=== PATIENT | female | born 1945 | race Caucasian/White ===

== ENCOUNTER → 2018-01-31 07:02 | Day surgery (SDC) | payer MEDICARE, BC ==
--- NOTE | 2018-01-17 10:19 | HP ---
HISTORY AND PHYSICAL: DATE OF SURGERY: 01/31/18 DATE OF HISTORY AND PHYSICAL: 01/14/18 SURGEON: Dr. Salmon.* (DICTATED BY JOE BENSON) PROCEDURE: Right foot excision of ganglion cyst. CHIEF COMPLAINT: Right foot pain. HISTORY OF PRESENT ILLNESS: Efren is a 72-year-old female, left hand dominant, who presents for followup of a right dorsal foot mass. She does have other ganglion cysts, but this one does seem to be the most bothersome to her. After discussion of history of ganglion cysts at the wrist and ankle, she was presented with aspirating, waiting, or surgical removal of these cysts. However , she has returned today as she has been concerned with the right foot lesion and feels very self-conscious because of it. She reports it varies occasionally in size, though she denies it causes significant pain. She denies any history of DVT or PE for herself or family. She has not had any problems in the past with anesthesia. She states she would like something local or blocks rather than a more generalized procedure. PAST MEDICAL HISTORY: Headaches, fibromyalgia, cervical and lumbosacral spondylosis, and osteoporosis. PAST SURGICAL HISTORY: Breast lumpectomy, bilateral bunion surgeries, and cataract surgery. MEDICATIONS: 1. Buspirone HCl 5 mg b.i.d. 2. Lexapro 20 mg every day. 3. Aspirin 81 mg. 4. Flexeril 5 mg at night. 5. Cozaar 50 mg daily. 6. Fioricet 1 to 2 tablets every 6 hours as needed for headache. 7. Flexeril 5 mg at night. 8. Famotidine 1 daily. ALLERGIES: CEFTIN, BIAXIN, and PERCOCET. FAMILY MEDICAL HISTORY: Mother with WI at 73. SOCIAL HISTORY: She denies tobacco use. She occasionally drinks alcohol. She denies any illicit drug use. REVIEW OF SYSTEMS: The patient endorses her presenting complaint as outlined in the HPI as well as chronic headaches, chronic back pain, depression, and easy bruising. She does endorse inability to walk a flight of stairs or a city block without needing to stop for rest or chest pain. Otherwise, a 12-point system review was negative. PHYSICAL EXAMINATION GENERAL: Well-nourished, well-developed, in no acute distress. Alert and oriented x3. Appropriate mood and affect. She ambulates with non-antalgic gait. VITAL SIGNS: Height 62 inches, weight 128 pounds, pulse 80, blood pressure 158/ 86, respirations 12, pain level 0, BMI 23.4. MUSCULOSKELETAL: Muscle bulk and tone in upper and lower extremities symmetrical bilaterally. Right lower extremity: Right foot exam shows some soft tissue swelling about the dorsum of the mid to hind foot. The lesion is approximately 3 x 3 cm in size with some depth to it. There is no tenderness on palpation to this lesion. It is soft, mobile, and gelatinous like in palpation. It does not move when the patient is passively or actively ranges her foot or toes. No tenderness to palpation of the local joint such as talonavicular joint or cuneiform joints. Neurovascularly, intact distally. Mass is not pulsatile. There is no Tinel's to it. DIAGNOSTIC STUDIES: Three x-ray views of the right foot were reviewed from . They showed some soft tissue swelling at the dorsum of the foot at the level of the talonavicular joint. There is hardware in the first metatarsal consistent with prior surgery for hallux valgus. IMPRESSION: Right foot mass. PLAN: The patient is scheduled to undergo right foot excision of ganglion cyst with Dr. Salmon on 01/31/18. She will return to the clinic 10 to 14 days for followup and suture removal. Prescription for pain medication will be prescribed to the patient's pharmacy of record for postoperative pain management on day of surgery. Prior to surgery, we will get an MRI of the right foot to evaluate the dorsum foot mass and assess for possible source of the cyst prior to operation to facilitate preoperative planning. All questions were answered today. Discussed risks and potential complications, including possible recurrence of cyst postoperatively. JOE BENSON [id number]/[facility] #: [id number] DONYA
[~2018-01-31 07:02] MED LIST: Buffered Lidocaine 0.9% SYRIN* 5 ML/SYR SYRINGE INTRADERM ONE; Buffered Lidocaine 0.9% SYRIN* 5 ML/SYR SYRINGE ONE; Bupivacaine 0.5% PF 10 ML VIAL INJ ONE; Clindamycin 900 MG IVPREMIX(* 900 MG/50 ML SDV IV ONE; Dexamethasone IV* 4 MG/ML 1 ML (4 MG) IV SLOW PU ONE; Dexamethasone IV* 4 MG/ML 1 ML (4 MG) ONE; EPHEDrine (Pressors)* 50 MG/ML VIAL ONE; Famotidine TAB* 20 MG ONE; Famotidine TAB* 20 MG PO ONE; Lidocaine 1% MPF wEPI 200,000* 30 ML SDV ONE; Lidocaine 2% PF* 10 ML AMP ONE; Midazolam* 1 MG/ML 5 ML VIAL (5 MG) ONE; Naloxone* 0.4 MG/ML 1 ML VIAL IV PRN; Ondansetron ODT TAB* 4 MG ONE; Ondansetron ODT TAB* 4 MG PO ONE; Phenylephrine INJ* 10 MG/ML 1 ML VIAL (10 MG) ONE; Propofol* 10 MG/ML 20 ML BTL IV PUSH ONE; fentaNYL* 50 MCG/ML 2 ML VIAL (100 MCG VIAL) ONE
[2018-01-31 10:57] VITALS: BP 146/76
--- NOTE | 2018-02-02 23:18 | OP ---
DATE OF OPERATION: 01/31/18 - [facility] DATE OF : 47 SURGEON: Nando Salmon MD AUTO BRAKE MECHANIC: JOE Frazier. ANESTHESIOLOGIST: Oscar Velazquez MD ANESTHESIA: Monitored anesthesia care, local anesthesia with 10 cc lidocaine 1 % with epinephrine. PRE-OP DIAGNOSIS: Right foot mass, likely ganglion cyst. POST-OP DIAGNOSIS: Right foot mass, likely ganglion cyst. PROCEDURE: Open excision of mass, right foot, dorsum, likely ganglion cyst. IV FLUIDS: 800 cc crystalloid. ANTIBIOTICS: Clindamycin 900 mg IV. TOURNIQUET TIME: 50 minutes at 250mmHg [id number] TIME: 46 minutes. SPECIMEN: Sacs of multiple presumed cystic masses, sent to pathology. IMPLANTS: None. COMPLICATIONS: None. ESTIMATED BLOOD LOSS: Minimal. INDICATIONS FOR PROCEDURE: The patient is a 72-year-old woman, not currently working, who presented to me first on 01/10/17, and then 1 year later on , with the same complaint, of a mass about the right foot. This was not causing her significant pain, but was more of a cosmetic concern. The patient was noted to have some bumps through-out the rest of her body including Lily 's and Heberden's nodes in her fingers as well as likely right wrist dorsal ganglion. However, none of those bothered her as much as the large mass about the dorsum of the right foot. This did make shoe wear difficult, and uncomfortable and was also a cosmetic concern. The patient opted for surgical removal after we discussed, doing nothing, doing an aspiration, or surgical management. Discussed risks and potential complications including bleeding, infection, nerve or blood vessel injury, recurrence of mass. I told the patient that the ganglions in the feet tend to come most commonly from tendon sheaths, but second most commonly from joints. MRI demonstrated that the cystic mass was present and surrounded the extensor digitorum longus tendons. There was no clear stalk present emanating from a certain joint capsule. There was no clear tendon rupture. There was some minimal synovitis noted of the tendon sheath of the EDL tendons. I discussed that these foot ganglions have a higher recurrence rate than those in the wrist, quoted in some places as high as 30%. DESCRIPTION OF PROCEDURE: The patient had a strong preference not to have general anesthesia. In preoperative holding, the patient signed a written consent. Operative extremity was marked in preoperative holding. The patient was taken back to the operating room and placed supine on operating room table. Monitored anesthesia care, sedation was provided by Anesthesia. With the patient somewhat sedated, we performed a mini time-out and then placed some local anesthetic. I performed a partial ankle block, local anesthesia, infusing 7 cc of lidocaine 1% with epinephrine into the vicinity of the deep peroneal nerve, followed by injection into the vicinity of the superficial peroneal nerve branches. This was done clearly, just proximal to the tibiotalar joint, proximal to our cystic mass. The patient was then prepped and draped. Surgical time-out was performed. An Esmarch was applied and the tourniquet was elevated to 250 mmHg. A longitudinal skin incision was made directly superficial to the large cystic mass, that had been measured in clinic and by MRIs approximately 3 x 3 cm in size. I extended that skin incision just proximal and distal to the lesion. Knowing that branches of the superficial peroneal nerve can be very close to the skin and can adhere to lesion such as this, I was very careful to dissect around the cystic mass. This was clearly visible and abutted up to the skin level. I freed it up proximal, distal, medial, and lateral. In the process of this, the cyst started emanating fluid from it. This was suctioned out. The sac of the cyst was then removed. There was no clear stalk heading to a particular joint. Further inspection revealed the location of the EDL tendons, which were mostly lateral to this first lesion we had encountered. I also saw the EHL. Deep to the EDL tendons and just medial to them was a second large cyst. This was dissected around carefully using dissection scissors and then removed. Again, no clear stalk. Distal down the course of the EDL tendons, there was a third very small satellite sac, which was removed. None of the 3 sacs that I had removed included a clear stalk to tendon or stalk to a particular joint. Talonavicular joint was very close to these lesions and inspected partially. I removed some diseased synovium from about the EDL tendons. None of those tendons had any significant damage to them nor were any of them ruptured. In order to better visualize these tendons, at this point, I released a small amount of the inferior leg of the extensor retinaculum of the hindfoot and ankle. This provided some freedom of movement, although not significant bowstringing of the extensor tendons. It enabled improved visualization of these tendons confirming no disease to them. A small piece of extensor retinaculum that was released could not be repaired. Especially the lateral extent was clearly diseased. Irrigated well the wound. Through the procedure, there were several small neurovascular bundles encountered and respected. The patient had requested only absorbable sutures being used when I spoke to her preoperative. I heeded this advice and performed a closure using a subcuticular running stitch using Monocryl 4-0 suture. Mastisol, then Steri-Strips, 4x4 followed by Mesfin. The patient was placed in a walking boot. The tourniquet was dropped. DISPOSITION: The patient was sent home with a limited quantity, 10, [place] tablets to take as needed for pain. No anticoagulant or antibiotic provided. The patient was given wound care instructions to maintain the dressings for 3 days postoperatively and then to apply a new dressing once daily for 7 days postoperatively. She was to wear the boot as needed postoperatively for discomfort minimization. The patient will follow up with me in 10 to 14 days postoperative in clinic. [id number]/[facility] #: [id number]/[facility] #: [id number] DONYA
--- NOTE | 2018-02-02 23:42 | OP ---
OPERATIVE REPORT: ADDENDUM: TOURNIQUET TIME: 50 minutes at 250 mmHg. ESTIMATED BLOOD LOSS: Minimal. [id number]/[facility] #: [id number] MTDD
== END | disposition home or self-care (01) ==
LOC: OR 07:02
PROVIDERS: ATTEND Orthopaedic Surgery
DX: M67.471 Ganglion, right ankle and foot (principal); M81.0 Age-related osteoporosis without current pathological fracture; M79.7 Fibromyalgia; I10 Essential (primary) hypertension; R00.2 Palpitations; K21.9 Gastro-esophageal reflux disease without esophagitis; F41.9 Anxiety disorder, unspecified
CPT/HCPCS: 88304; A9270-GY; J1100; J2001; J2250; J2704; J3010

== ENCOUNTER 2018-06-22 23:39 | Emergency (ER) | payer MEDICARE, BC ==
[2018-06-23] MEDS ORDERED: LORazepam INJ* 2 MG/ML 1 ML VIAL IV PUSH ONE (00:32)
--- NOTE | 2018-06-23 00:39 | ED ---
HPI Cardiac - HPI Summary HPI Summary: This patient is a 72 year old F presenting to [facility] with a chief complaint of intermittent palpitations (fluttering) since 05:00 today. Patient reports lightheadedness, chest discomfort (feels like I didnt digest my food), fatigue, arm weakness, and leg weakness. Patient denies numbness, trouble breathing, and dyspnea. She says that she feels the palpations every 2-3 months. Patient does not drink coffee. PMHx of anxiety, for which she takes Buspirone and Cipralex. - History of Current Complaint Chief Complaint: EDDysrhythmPalp Stated Complaint: INDIGESTION/LEG AND ARM WEAKNESS/PALPATATIONS Time Seen by Provider: 06/23/18 00:00 Hx Obtained From: Patient Onset/Duration: Started Hours Ago - 05:00 on 06/22/18 Timing: Intermittent Pain Intensity: 0 Associated Signs and Symptoms: Positive: Chest Pain - chest discomfort (feels like I didnt digest my food), Lightheadedness, Other: - Fatigue, arm weakness , and leg weakness. Denies numbness, trouble breathing, and dyspnea. - Allergy/Home Medications Allergies/Adverse Reactions: Allergies Allergy/AdvReac Type Severity Reaction Status Date / Time cefuroxime Allergy Severe Tachycardia Verified 06/22/18 23:54 clarithromycin Allergy Severe Tachycardia Verified 06/22/18 23:54 metronidazole Allergy Severe Tachycardia Verified 06/22/18 23:54 oxycodone [From Percocet] Allergy Severe Tachycardia Verified 06/22/18 23:54 tetracycline Allergy Severe Nausea Verified 06/22/18 23:54 tramadol Allergy Severe Nausea Verified 06/22/18 23:54 PMH/Surg Hx/FS Hx/Imm Hx Endocrine/Hematology History: Denies: Hx Anticoagulant Therapy, Hx Diabetes, Hx Thyroid Disease Cardiovascular History: Reports: Hx Hypertension - controlled with meds, Other Cardiovascular Problems/Disorders - nodules on lungs- benign Denies: Hx Pacemaker/ICD Respiratory History: Denies: Hx Asthma, Hx Chronic Obstructive Pulmonary Disease (COPD) GI History: Reports: Hx Gastroesophageal Reflux Disease History: Denies: Hx Renal Disease Musculoskeletal History: Reports: Hx Arthritis - neck and lower spine, Hx Fibromyalgia, Hx Osteoporosis Sensory History: Reports: Hx Contacts or Glasses - glasses Denies: Hx Hearing Aid Opthamlomology History: Reports: Hx Contacts or Glasses - glasses Neurological History: Reports: Hx Headaches, Hx Nerve Disease - fibromyalgia Denies: Hx Dementia, Hx Seizures Psychiatric History: Reports: Hx Anxiety - on meds, Hx Depression Denies: Hx Panic Disorder, Hx Substance Abuse - Cancer History Hx Chemotherapy: No Hx Radiation Therapy: No - Surgical History Surgery Procedure, Year, and Place: bilat breast surgury, left 1968, right 1970. D&C 1994. bilat cataract surgery 2009. bilat bunion 2005, 2006 Hx Anesthesia Reactions: Yes - has emesis with general when wakes up Infectious Disease History: No Infectious Disease History: Denies: Hx Hepatitis, Hx Human Immunodeficiency Virus (HIV), Traveled Outside the [place] in Last 30 Days - Family History Known Family History: Positive: Cardiac Disease Negative: Diabetes - Social History Occupation: Retired Alcohol Use: Rare Substance Use Type: Reports: None Smoking Status (MU): Never Smoked Tobacco Review of Systems Positive: Fatigue Positive: Palpitations - (fluttering) , Chest Pain - chest discomfort (feels like I didnt digest my food) Negative: Other - Denies trouble breathing and dyspnea Positive: Other - arm weakness and leg weakness Neurological: Other - Lightheadedness Negative: Numbness All Other Systems Reviewed And Are Negative: Yes Physical Exam - Summary Physical Exam Summary: VITAL SIGNS: Reviewed. GENERAL: Patient is a well-developed and nourished FEMALE who is lying comfortable in the stretcher. Patient is not in any acute respiratory distress. HEAD AND FACE: No signs of trauma. No ecchymosis, hematomas or skull depressions. No sinus tenderness. EYES: PERRLA, EOMI x 2, No injected conjunctiva, no nystagmus. EARS: Hearing grossly intact. Ear canals and tympanic membranes are within normal limits. MOUTH: Oropharynx within normal limits. NECK: Supple, trachea is midline, no adenopathy, no JVD, no carotid bruit, no c- spine tenderness, neck with full ROM. CHEST: Symmetric, no tenderness at palpation LUNGS: Clear to auscultation bilaterally. No wheezing or crackles. CVS: Mild tachycardia. Regular rhythm, S1 and S2 present, no murmurs or gallops appreciated. ABDOMEN: Soft, non-tender. No signs of distention. No rebound no guarding, and no masses palpated. Bowel sounds are normal. EXTREMITIES: FROM in all major joints, no edema, no cyanosis or clubbing. NEURO: Alert and oriented x 3. No acute neurological deficits. Speech is normal and follows commands. SKIN: Dry and warm Triage Information Reviewed: Yes Vital Signs On Initial Exam: Initial Vitals Temp Pulse Resp BP Pulse Ox 97.9 F 104 16 185/93 98 06/22/18 23:45 06/22/18 23:45 06/22/18 23:45 06/22/18 23:45 06/22/18 23:45 Vital Signs Reviewed: Yes Diagnostics - Vital Signs Vital Signs Temp Pulse Resp BP Pulse Ox 06/23/18 00:04 99 17 164/82 92 06/23/18 00:03 100 16 93 06/22/18 23:45 97.9 F 104 16 185/93 98 - Laboratory Result Diagrams: 06/23/18 01:10 06/23/18 01:10 Lab Statement: Any lab studies that have been ordered have been reviewed, and results considered in the medical decision making process. - CT Chest/Thorax CTA CT Interpretation Completed By: Radiologist - 03:48. 1. Noncalcified left lower lobe pulmonary nodule posterolaterally measuring 6 mm which is unchanged from 06/25/2012. No followup is needed with this stability. 2. Mild interstitial prominence with minimal scattered fibro-atelectatic change, greatest in the lower lobes and question of minimal patchy infiltrates which are new or increased since the prior study. 3. Borderline right hilar nodes which are increased since prior study. 4. Otherwise negative CTA chest. No pulmonary embolism is identified. ED Physician has reviewed this imaging report. - EKG 23:57 Cardiac Rate: Tachycardia - 102 BPM EKG Rhythm: Sinus Rhythm EKG Interpretation: Normal axis. Normal interval. No ischemic changes. Disposition - Course Course Of Treatment: This patient is a 72 year old F presenting to [facility] with a chief complaint of intermittent palpitations (fluttering) since 05:00 today. Patient reports lightheadedness, chest discomfort (feels like I didnt digest my food), fatigue, arm weakness, and leg weakness. Patient denies numbness , trouble breathing, and dyspnea. She says that she feels the palpations every 2 -3 months. Patient does not drink coffee. PMHx of anxiety, for which she takes Buspirone and Cipralex. Chest/Thorax CTA showed: 1. Noncalcified left lower lobe pulmonary nodule posterolaterally measuring 6 mm which is unchanged from 06/25/2012. No followup is needed with this stability. 2. Mild interstitial prominence with minimal scattered fibro-atelectatic change, greatest in the lower lobes and question of minimal patchy infiltrates which are new or increased since the prior study. 3. Borderline right hilar nodes which are increased since prior study. 4. Otherwise negative CTA chest. No pulmonary embolism is identified. EKG was normal. Patient has been advised to follow up with a pulomonolgist GREGORY. Patient understands. Dx sinus tch, anxiety. Pt symptoms most likely secondary to anxiety. She does not have a PE. Pt will follow up with recruiter manager regarding her CT changes and her lung exam. She was given a copy of the CT to show her PCP/recruiter manager. - Diagnoses Provider Diagnoses: Sinus tachycardia, Anxiety Discharge - Sign-Out/Discharge Documenting (check all that apply): Patient Departure - Discharge Plan Condition: Stable Disposition: HOME Patient Education Materials: Anxiety (ED), Tachycardia (ED) Referrals: Greyson Maciel MD [Primary Care Provider] - As Soon As Possible (Your primary care physician can direct you to a recruiter manager. ) Additional Instructions: RETURN TO THE EMERGENCY DEPARTMENT FOR CHANGING OR WORSENING SYMPTOMS. FOLLOW UP WITH PCP/FOUR SLIDE MACHINE SETTER GREGORY. - Attestation Statements Document Initiated by Scribe: Yes Documenting Scribe: Alfredo Heard Provider For Whom Scribe is Documenting (Include Credential): Chase Dunn MD Scribe Attestation: Alfredo Addison, scribed for Chase Dunn MD on 06/23/18 at 0410.
[2018-06-23 01:21] LABS: ABS Basophils 0 10^3/ul (0-0.2); ABS Eosinophils 0.1 10^3/ul (0-0.6); ABS Lymphocytes 0.7 10^3/ul (1.0-4.8); ABS Monocytes 0.5 10^3/ul (0-0.8); ABS Neutrophils 4.3 10^3/ul (1.5-7.7); ABS Nucleated RBC 0 10^3/ul; Eosinophil % 1.4 % (0-6); Hematocrit 42 % (35-47); Hemoglobin 14.3 g/dl (12.0-16.0); Lymphocyte % 12.7 % (25-47); Mean Corpuscular HGB Conc 34 g/dl (31-36); Mean Corpuscular Hemoglobin 32 pg (27-31); Mean Corpuscular Volume 93 fL (80-97); Mean Platelet Volume 8.2 um3 (7.4-10.4); Nucleated Red Blood Cells % 0.1; Platelet Count 208 10^3/ul (150-450); Red Blood Count 4.54 10^6/ul (4.00-5.40); Red Cell Distribution Width 13 % (10.5-15); White Blood Count 5.7 10^3/ul (3.5-10.8)
[2018-06-23 01:29] LABS: INR 0.86 (0.77-1.02)
[2018-06-23 01:39] LABS: EGFR Non-African American 73.9 (>60)
[2018-06-23 01:53] VITALS: BP 160/79
[2018-06-23] MEDS ORDERED: Iohexol 350* (CONTRAST) 500 ML MDV IV ONE (02:50)
--- NOTE | 2018-06-23 03:48 | RAD ---
EXAM: CT Angiography Chest With Intravenous Contrast EXAM DATE/TIME: Exam ordered 06/23/2018 2:52 AM CLINICAL HISTORY: 72 years old, female; Signs and symptoms; Shortness of breath; Additional info: Pe TECHNIQUE: Axial computed tomographic angiography images of the chest with intravenous contrast using pulmonary embolism protocol. All CT scans at this facility use at least one of these dose optimization techniques: automated exposure control; mA and/or kV adjustment per patient size (includes targeted exams where dose is matched to clinical indication); or iterative reconstruction. MIP reconstructed images were created and reviewed. Coronal and sagittal reformatted images were created and reviewed. CONTRAST: 60 mL of OMNI 350 administered intravenously. COMPARISON: CTA CHEST CTA CHEST 06/25/2012 5:02 PM FINDINGS: Pulmonary arteries: The main pulmonary artery measures 24 mm. No pulmonary embolism is identified. Aorta: The ascending thoracic aorta measures 30 mm. The left vertebral artery originates directly from the arch. No thoracic aortic aneurysm. Lungs: Mild interstitial prominence with minimal scattered fibro-atelectatic change, greatest in the lower lobes. There is question of minimal patchy infiltrate. Noncalcified nodule in the posterolateral left lower lobe measuring 6 mm. Pleural space: Unremarkable. No significant effusion. No pneumothorax. Heart: Unremarkable. No cardiomegaly. No significant pericardial effusion. No evidence of RV dysfunction. Bones/joints: No acute fracture. No dislocation. Soft tissues: Unremarkable. Lymph nodes: Borderline right hilar nodes. Liver: Small hepatic cysts measuring up to 12 mm. IMPRESSION: 1. Noncalcified left lower lobe pulmonary nodule posterolaterally measuring 6 mm which is unchanged from 06/25/2012. No followup is needed with this stability. 2. Mild interstitial prominence with minimal scattered fibro-atelectatic change, greatest in the lower lobes and question of minimal patchy infiltrates which are new or increased since the prior study. 3. Borderline right hilar nodes which are increased since prior study. 4. Otherwise negative CTA chest. No pulmonary embolism is identified. To contact [facility] with a general question: [facility] - [phone] For direct physician to physician contact: Physician Hotline - [phone] [facility] ([facility] Facility ID #[id number])
== END 2018-06-23 04:25 | disposition home or self-care (01) ==
LOC: ED 23:39
DX: R00.0 Tachycardia, unspecified (principal); F41.9 Anxiety disorder, unspecified; R07.9 Chest pain, unspecified; R53.1 Weakness; R00.2 Palpitations; R42 Dizziness and giddiness
CPT/HCPCS: 36415; 71275; 80053; 83735; 84443; 84484; 85025; 85379; 85610; 85730; 96374; 99283; Q9967

== ENCOUNTER 2020-12-09 14:05 | Inpatient (IN) ==
[2020-12-09 16:06] LABS: ABS Lymphocytes 0.8 10^3/ul (1.0-4.8); ABS Monocytes 0.6 10^3/ul (0-0.8); ABS Neutrophils 5.7 10^3/ul (1.5-7.7); Eosinophil % 0.4 %; Hematocrit 44 % (35-47); Hemoglobin 14.9 g/dL (12.0-16.0); Lymphocyte % 11.4 %; Mean Corpuscular HGB Conc 34 g/dL (31-36); Mean Corpuscular Hemoglobin 32 pg (27-31); Mean Corpuscular Volume 93 fL (80-97); Mean Platelet Volume 8.1 fL (7.4-10.4); Nucleated Red Blood Cells % 0.1; Platelet Count 251 10^3/uL (150-450); Red Blood Count 4.73 10^6 /uL (3.70-4.87); Red Cell Distribution Width 13 % (10-15); White Blood Count 7.1 10^3/uL (3.5-10.8)
[2020-12-09 16:17] LABS: INR 1.03 (0.82-1.09)
[2020-12-09 16:25] LABS: Albumin 4.7 g/dL (3.2-5.2); Albumin/Globulin Ratio 1.6 (1-3); BUN/Creatinine Ratio 18.5 (8-20); Calcium 10.1 mg/dL (8.6-10.3); EGFR African American 72.2 (>60); EGFR Non-African American 59.7 (>60); Globulin 2.9 g/dL (2-4); Potassium 3.9 mmol/L (3.5-5.0); Total Bilirubin 0.3 mg/dL (0.2-1.0); Total Protein 7.6 g/dL (6.4-8.9)
[2020-12-09 17:19] LABS: Hepatitis C Antibody Negative (Negative)
[2020-12-09] MEDS ORDERED: Iodixanol (CONTRAST) 320 MG/ML 100 ML SDV IV ONE (17:23)
[2020-12-09 19:53] LABS: TSH Ultra Thyroid Stim Horm 1.43 mcIU/mL (0.34-5.60)
[2020-12-09] MEDS: Butalb/Acetamin/Caff TAB 325-50-40MG PO PRN (23:58)
[2020-12-10 06:52] LABS: BUN/Creatinine Ratio 15.7 (8-20); Calcium 9.2 mg/dL (8.6-10.3); Potassium 3.5 mmol/L (3.5-5.0)
[2020-12-10] MEDS: Butalb/Acetamin/Caff TAB 325-50-40MG PO PRN ×3 (07:42→21:30)
[2020-12-10 10:04] LABS: HDL Cholesterol 70.2 mg/dL
[2020-12-10] MEDS: Aspirin EC 81 mg TAB.EC (enteric coated) PO SCH (10:07)
[2020-12-11] MEDS: Aspirin EC 81 mg TAB.EC (enteric coated) PO SCH (08:00)
[2020-12-11] MEDS: Butalb/Acetamin/Caff TAB 325-50-40MG PO PRN ×3 (08:01→20:12)
[2020-12-12 08:13] LABS: BUN/Creatinine Ratio 22.6 (8-20); Calcium 9.9 mg/dL (8.6-10.3); EGFR African American 61.3 (>60); EGFR Non-African American 50.7 (>60); Potassium 3.8 mmol/L (3.5-5.0)
[2020-12-12] MEDS ORDERED: Regadenoson 0.4 MG/5 ML SYRINGE ONE (09:35)
[2020-12-12] MEDS: Butalb/Acetamin/Caff TAB 325-50-40MG PO PRN (10:22)
[2020-12-12 10:44] VITALS: BP 159/77
[2020-12-12] MEDS: Aspirin EC 81 mg TAB.EC (enteric coated) PO SCH (11:30)
== END 2020-12-12 12:55 | disposition home or self-care (01) | DRG 313 ==
LOC: ED 14:05 → MEDTELE 14:05 → OBSVTOIN 20:19 → MEDTELE 22:21
PROVIDERS: ADMIT Internal Medicine; ATTEND Hospitalist